=== PATIENT | male | born 1975 | race Caucasian/White ===

== ENCOUNTER 2022-01-31 19:03 | Observation (INO) | payer OTHER ==
[~2022-01-31] VITALS: Ht 185.4 cm; Wt 104.3 kg
[2022-01-31] MEDS ORDERED: SODIUM CHLORIDE 0.9% 1000ML 1,000 ML IV STA (19:18)
[2022-01-31] MEDS ORDERED: Morphine 4mg INJECTION 4 MG/ML INJ IV STA (19:18)
[2022-01-31] MEDS ORDERED: ONDANSETRON HCL INJ 2MG/ML 2ML 2 MG/ML VIAL IV ONE (19:30)
[2022-01-31] MEDS ORDERED: FAMOTIDINE 20 MG/2 ML VIAL IV ONE (19:30)
[2022-01-31] MEDS ORDERED: SODIUM CHLORIDE 0.9% 1000ML 1,000 ML ONE (19:34)
[2022-01-31] MEDS ORDERED: DIPHENHYDRAMINE HCL INJ 50 MG/ML VIAL IV PRN (19:45)
[2022-01-31] MEDS ORDERED: Morphine 4mg INJECTION 4 MG/ML INJ IV PRN (19:45)
[2022-01-31] MEDS ORDERED: TETANUS/DIPHTHERIA TOX ADULT 0.5 ML SYR IM STA (19:46)
[2022-01-31 19:52] LABS: BASOPHILS # (AUTO) 0.1 (0.0-0.1); BASOPHILS % 0.4 % (0.0-1.0); EOSINOPHILS # (AUTO) 0.4 (0.0-0.4); EOSINOPHILS % 3.5 % (0.0-6.0); HEMOGLOBIN 17.2 g/dL (14.0-18.0); LYMPHOCYTES # (AUTO) 3.8 (1.0-3.2); LYMPHOCYTES % 33.5 % (18.0-39.1); MEAN CORPUSCULAR HEMOGLOBIN 31.4 pg (28-32); MEAN CORPUSCULAR HGB CONC 33.7 g/dL (31-35); MEAN CORPUSCULAR VOLUME 93.1 fL (81-99); MONOCYTES # (AUTO) 0.9 (0.2-0.8); MONOCYTES % 8.1 % (4.4-11.3); NEUTROPHILS # (AUTO) 6.1 (2.1-6.9); NEUTROPHILS % 54.3 % (38.7-80.0); PLATELET COUNT 362 x10e3/uL (140-360); RED BLOOD COUNT 5.48 x10e6/uL (4.3-5.7); RED CELL DISTRIBUTION WIDTH 11.7 % (11.7-14.4)
[2022-01-31 19:56] LABS: INR 0.98; PROTHROMBIN TIME 13.9 seconds (11.9-14.5)
[2022-01-31] MEDS ORDERED: MUPIROCIN 2% OINT 22 GM TUBE TOP ONE (20:00)
[2022-01-31 20:03] LABS: ALBUMIN 4.2 g/dL (3.5-5.0); ALBUMIN/GLOBULIN RATIO 1.2 (0.8-2.0); ANION GAP 18.5 mmol/L (8-16); CALCIUM 9.7 mg/dL (8.4-10.2); CREATININE, SERUM 1.58 mg/dL (0.72-1.25); POTASSIUM 3.5 mmol/L (3.5-5.1)
[2022-01-31] MEDS ORDERED: TETANUS/DIPHTHERIA TOX ADULT 0.5 ML SYR IM ONE (20:30)
[2022-01-31 20:51] LABS: PARTIAL THROMBOPLASTIN TIME 28.1 seconds (23.8-35.5)
[2022-01-31] MEDS: HYDROMORPHONE 2MG/ML 2 MG/ML ML IV PRN (21:41)
[2022-01-31 23:03] LABS: CLARITY,URINE CLEAR (CLEAR); COLOR,URINE YELLOW (YELLOW); KETONES,URINE 1+ (NEGATIVE); LEUKOCYTE ESTERASE ,URINE NEGATIVE (NEGATIVE); NITRITE,URINE NEGATIVE (NEGATIVE); PROTEIN,URINE DIPSTICK NEGATIVE (NEGATIVE); URINE UROBILINOGEN 0.2 mg/dL (0.2 - 1)
[2022-01-31 23:06] LABS: BACTERIA,URINE FEW /HPF; EPITHELIAL CELLS,URINE RARE /LPF; RBC,URINE 0-5 /HPF (0-5); WBC,URINE (MAN) 0-5 /HPF (0-5)
[2022-02-01] VITALS (7 sets, daily range): BP systolic 116–165; BP diastolic 92–106
[2022-02-01] MEDS: ONDANSETRON HCL INJ 2MG/ML 2ML 2 MG/ML VIAL IV PRN ×2 (02:46→06:40)
[2022-02-01] MEDS: HYDROMORPHONE 2MG/ML 2 MG/ML ML IV PRN ×3 (02:46→20:21)
[2022-02-01] MEDS ORDERED: SODIUM CHLORIDE 0.9% 1000ML 1,000 ML ONE (03:26)
[2022-02-01] MEDS ORDERED: DEXAMETHASONE SOD PHOS INJ 4 MG/ML SDV ONE (13:04)
[2022-02-01] MEDS ORDERED: POVIDONE IODINE 0.05% 0.05 % ML PO ONE (13:04)
[2022-02-01] MEDS ORDERED: ONDANSETRON HCL INJ 2MG/ML 2ML 2 MG/ML VIAL ONE (13:04)
[2022-02-01] MEDS ORDERED: PROPOFOL IV EMULSION 10 MG/ML 20 ML VIAL ONE (13:04)
[2022-02-01] MEDS ORDERED: SEVOFLURANE INHAL SOLN 250 ML PEN BTL ONE (13:04)
[2022-02-01] MEDS ORDERED: LIDOCAINE HCL 2% LOCAL INJ 5 ML SDV VIAL INJ ONE (13:04)
[2022-02-01] MEDS ORDERED: ACETAMINOPHEN 1000 MG/100 ML IV ONE (13:04)
[2022-02-01] MEDS ORDERED: Vancomycin IV 1,000 MG ONE (13:20)
[2022-02-01] MEDS ORDERED: Vancomycin IV 1 GM VIAL ONE ×3 (13:20→14:09)
[2022-02-01] MEDS ORDERED: BUPIVACAINE 0.25% 30ML SDV ONE (13:48)
[2022-02-01] MEDS ORDERED: FENTANYL CITRATE/PF 100MCG/2 ML INJ ONE (16:17)
[2022-02-01] MEDS ORDERED: HYDROMORPHONE 1MG/1ML INJ ONE ×2 (16:39→16:55)
[2022-02-01] MEDS: GABAPENTIN 100 MG CAP PO SCH (21:33)
[2022-02-02] VITALS: BP 120/76
[2022-02-02] MEDS: HYDROMORPHONE 2MG/ML 2 MG/ML ML IV PRN ×3 (01:18→09:20)
[2022-02-02] MEDS: Vancomycin IV 1 GM in SODIUM CHLORIDE 0.9% 250ML 250 ML IV SCH ×2 (01:18→13:46)
[2022-02-02 04:00] VITALS: BP 108/76
[2022-02-02 05:35] LABS: BASOPHILS % 0.2 % (0.0-1.0); HEMATOCRIT 46.4 % (38.2-49.6); HEMOGLOBIN 14.9 g/dL (14.0-18.0); LYMPHOCYTES % 15.2 % (18.0-39.1); MEAN CORPUSCULAR HEMOGLOBIN 31.3 pg (28-32); MEAN CORPUSCULAR HGB CONC 32.1 g/dL (31-35); MEAN CORPUSCULAR VOLUME 97.5 fL (81-99); MONOCYTES # (AUTO) 1.1 (0.2-0.8); NEUTROPHILS # (AUTO) 10.2 (2.1-6.9); NEUTROPHILS % 76.3 % (38.7-80.0); PLATELET COUNT 272 x10e3/uL (140-360); RED BLOOD COUNT 4.76 x10e6/uL (4.3-5.7); RED CELL DISTRIBUTION WIDTH 11.9 % (11.7-14.4)
[2022-02-02 05:44] LABS: ANION GAP 14.8 mmol/L (8-16); CALCIUM 8.7 mg/dL (8.4-10.2); CREATININE, SERUM 1.22 mg/dL (0.72-1.25); POTASSIUM 3.8 mmol/L (3.5-5.1)
[2022-02-02 08:37] VITALS: BP 125/83
[2022-02-02 08:49] VITALS: BP 125/83
[2022-02-02] MEDS ORDERED: ASCORBIC ACID 500 MG TAB PO SCH (09:00)
[2022-02-02] MEDS ORDERED: KETOROLAC TROMETHAMINE 30 MG/ML VIAL IM PRN (09:30)
[2022-02-02] MEDS ORDERED: HYDROCODONE/APAP 5MG-325MG TAB PO PRN (09:30)
[2022-02-02] MEDS: GABAPENTIN 100 MG CAP PO SCH ×2 (09:31→15:30)
[2022-02-02 11:15] VITALS: BP 122/91
[2022-02-02] MEDS: HYDROCODONE/APAP 10MG-325MG TAB PO PRN ×2 (11:43→15:30)
[2022-02-02] MEDS ORDERED: tylenol#3 PO (13:41)
== END 2022-02-02 15:41 | disposition home or self-care (01) ==
LOC: FSED 19:19 → ERHOLD 19:41 → MED/SURG3 02-01 02:17
PROVIDERS: ADMIT Internal Medicine; ATTEND Internal Medicine
DX: S52.572B Other intraarticular fracture of lower end of left radius, initial encounter for open fracture type I or II (principal); S52.692B Other fracture of lower end of left ulna, initial encounter for open fracture type I or II; W18.39XA Other fall on same level, initial encounter; N17.9 Acute kidney failure, unspecified; E66.9 Obesity, unspecified; F17.200 Nicotine dependence, unspecified, uncomplicated; Y92.019 Unspecified place in single-family (private) house as the place of occurrence of the external cause; Z68.30 Body mass index [BMI] 30.0-30.9, adult; Z20.822 Contact with and (suspected) exposure to COVID-19
CPT/HCPCS: 36415; 71045; 76000; 80048; 80053; 81001; 85025; 85610; 85730; 86850; 86900; 90471; 90714; 93005; 99284; C1713; G0378; J0690; J1100; J1170; J1885; J2001; J2270; J2405; J3010; J3370; J7030; J7050